=== PATIENT | female | born 1980 | race Caucasian/White ===

== ENCOUNTER 2019-01-11 14:43 | Emergency (ER) | payer MEDICAID ==
[~2019-01-11] VITALS: Ht 175.3 cm; Wt 93.0 kg
[2019-01-11] MEDS ORDERED: CEPHALEXIN 250MG CAPSULE PO ONE (16:45)
[2019-01-11 16:54] VITALS: BP 117/70
== END 2019-01-11 16:55 | disposition home or self-care (01) ==
LOC: ER 14:43
DX: L03.116 Cellulitis of left lower limb (principal); R50.9 Fever, unspecified
CPT/HCPCS: 99283

== ENCOUNTER 2019-04-24 09:08 | Emergency (ER) | payer MEDICAID ==
[~2019-04-24] VITALS: Ht 162.6 cm; Wt 95.0 kg
[2019-04-24 09:28] VITALS: BP 124/84
[2019-04-24] MEDS ORDERED: CEPHALEXIN 250MG CAPSULE PO ONE (10:45)
[2019-04-24] MEDS ORDERED: IBUPROFEN 600MG TABLET PO ONE (10:45)
== END 2019-04-24 11:29 | disposition home or self-care (01) ==
LOC: ER 09:08
DX: L03.116 Cellulitis of left lower limb (principal)
CPT/HCPCS: 99283

== ENCOUNTER 2019-06-24 12:28 | Emergency (ER) | payer MEDICAID ==
[~2019-06-24] VITALS: Ht 160 cm; Wt 94.0 kg
[2019-06-24] MEDS ORDERED: IBUPROFEN 600MG TABLET PO ONE (13:15)
[2019-06-24] MEDS ORDERED: CLINDAMYCIN HCL 150MG CAPSULE PO ONE (13:15)
[2019-06-24 13:39] LABS: HEMATOCRIT 37.2 % (36.0-48.0); HEMOGLOBIN 12.7 g/dL (12.0-16.0); MEAN CORPUSCULAR HEMOGLOBIN 28.6 pg (28.0-32.0); MEAN CORPUSCULAR VOLUME 83.6 fL (81.0-99.0); PLATELET 282 x1000/uL (130-400); RED BLOOD CELL COUNT 4.45 mill/uL (4.2-5.4); RED CELL DISTRIBUTION WIDTH 13.9 % (11.6-14.6)
[2019-06-24 13:47] LABS: CHLORIDE 106 mEq/L (98-107)
[2019-06-24 14:00] VITALS: BP 121/79
== END 2019-06-24 15:15 | disposition home or self-care (01) ==
LOC: ER 12:28
DX: L03.116 Cellulitis of left lower limb (principal)
CPT/HCPCS: 36415; 80048; 85027; 99283